=== PATIENT | male | born 1955 | race Caucasian/White ===

== ENCOUNTER 2020-09-17 08:59 | Day surgery (SDC) | payer MEDICARE, OTHER ==
[2020-09-17] MEDS ORDERED: Sodium Chloride 0.9% 1,000 ML IV SCH (09:30)
[2020-09-17] MEDS ORDERED: Midazolam 1 MG/ML 2 ML SDV ONE (09:43)
[2020-09-17] MEDS ORDERED: fentaNYL 100 MCG/2 ML SDV ONE (09:43)
[2020-09-17] MEDS ORDERED: Propofol 200 MG/20 ML SDV ONE (09:44)
--- NOTE | 2020-09-18 08:07 | OR ---
DATE OF PROCEDURE: 09/17/2020 SURGEON: Michael Vergara MD PROCEDURE: Colonoscopy. FINDINGS: Normal colonoscopy. COMPLICATIONS: None. 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 ANESTHESIA: MAC. PREOPERATIVE DIAGNOSIS: Screening colonoscopy/change in bowel habit. POSTOPERATIVE DIAGNOSIS: Screening colonoscopy/change in bowel habit. RISKS: Risks, benefits, alternatives, and limitations including, but not limited to infection, bleeding, false positives and false negatives were all explained to the patient who wished to proceed. PROCEDURE IN DETAIL: The patient was placed in left lateral decubitus position. Digital rectal exam was performed without abnormality. Scope was introduced and advanced atraumatically to the ileocecal valve. Scope was brought back to the ascending, transverse, descending colon, and retroflexed. No evidence of old or new blood. No masses. No polyps. No colitis. No diverticulosis. No abnormalities on retroflexion. The prep was acceptable with approximately 90% of the luminal surface could be seen. No abnormalities on retroflexion. The patient tolerated the procedure well. Greater than 8 minutes was spent removing the scope. Michael Vergara MD /[id number]
== END 2020-09-17 12:40 | disposition home or self-care (01) ==
LOC: JP.SDS 08:59
PROVIDERS: ATTEND Surgery
DX: R19.4 Change in bowel habit (principal); Z88.0 Allergy status to penicillin
CPT/HCPCS: J2250; J2704; J3010; J7030

== ENCOUNTER 2023-04-21 07:52 | Day surgery (SDC) | payer MEDICARE, OTHER ==
[2023-04-21] MEDS ORDERED: Propofol 200 MG/20 ML SDV ONE ×2 (08:26→10:38)
[2023-04-21] MEDS ORDERED: Midazolam 1 MG/ML 2 ML SDV ONE (08:26)
[2023-04-21] MEDS ORDERED: fentaNYL 100 MCG/2 ML SDV ONE (08:26)
[2023-04-21] MEDS ORDERED: Dextrose 5%-Lactated Ringers 1,000 ML IV SCH (08:30)
[2023-04-21] MEDS ORDERED: Bupivacaine 0.5% 50 ML MDV ONE (08:59)
[2023-04-21] MEDS ORDERED: Lidocaine 1% with EPINEPHrine 1:100,000 50 ML MDV ONE (09:00)
[2023-04-21] MEDS ORDERED: ceFAZolin 2 GM in Premix Bag 1 BAG IV ONE (09:00)
[2023-04-21] MEDS ORDERED: Bacitracin Oint 1 GM U/D Packet ONE (09:21)
== END 2023-04-21 12:30 | disposition home or self-care (01) ==
LOC: JP.SDS 07:52
PROVIDERS: ATTEND Surgery
DX: D17.9 Benign lipomatous neoplasm, unspecified (principal); Z86.69 Personal history of other diseases of the nervous system and sense organs; Z86.79 Personal history of other diseases of the circulatory system; Z88.0 Allergy status to penicillin
CPT/HCPCS: 24073; J0690; J2250; J2704; J3010; J3490; J7121